=== PATIENT | female | born 1950 | race Caucasian/White ===

== ENCOUNTER 2024-11-22 06:58 | Outpatient (CLI) | payer MEDICARE, SELFPAY ==
--- NOTE | ~2024-11-22 | MR_ITS ---
MRI of the right knee Clinical history: Chronic pain Technique: Coronal proton density and proton density-weighted images, sagittal proton-density and T2 fat-sat images, and axial proton-density fat-saturated images were acquired. Findings: Anterior and posterior cruciate joints are intact. Medial collateral ligament and the later al collateral ligament complex are intact. Popliteus tendon is intact. There is a radial tear at the posterior root of the medial meniscus. No lateral meniscal tear identif ied. Articular cartilage is preserved throughout the knee. There is speckled T2 hyperintense marrow signal approximately tibia, which could reflect enthesopathic change, possibly low-grade chondroid lesion. Extensor mechanism is intact. Minimal joint effusion present. [id number] Arnold's cyst present. Impression: Radial tear of the posterior root of the medial meniscus. 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 Reviewed, dictated and finalized at [facility]. Impression: Radial tear of the posterior root of the medial meniscus. 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
== END 2024-11-22 06:59 | disposition home or self-care (01) ==
PROVIDERS: PCP Physician Assistant; Visit Provider Physician Assistant
DX: S83.241A Other tear of medial meniscus, current injury, right knee, initial encounter (principal); X58.XXXA Exposure to other specified factors, initial encounter; M25.561 Pain in right knee; G89.29 Other chronic pain
CPT/HCPCS: 73721